=== PATIENT | male | born 1945 | race Caucasian/White ===

== ENCOUNTER 2018-01-03 03:28 | Emergency (ER) | payer OTHER, BC ==
--- NOTE | 2018-01-03 03:49 | PDOC ---
History of Present Illness - General History Source: Patient - History of Present Illness Initial Comments: 01/03/18 03:45 72 y.o. male with a PMH of Glioblastoma Multiforme, HTN, Vitamin D deficiency, Anxiety and Dsyphagia presents to our facility this morning from [facility] after self-extricating his tracheostomy while moving in bed. As per [facility], patient has a size 6 tube and was in his usual state of health prior to presentation. At presentation patient SpO2 98% on NRB. <Marta Easley - Last Filed: 01/03/18 06:04> <Luann Arvizu - Last Filed: 01/03/18 21:15> - General Stated Complaint: TRACH PROBLEM Time Seen by Provider: 01/03/18 03:45 Past History <Marta Easley - Last Filed: 01/03/18 06:04> <Luann Arvizu - Last Filed: 01/03/18 21:15> - Past Medical History Allergies/Adverse Reactions: Allergies Allergy/AdvReac Type Severity Reaction Status Date / Time No Known Allergies Allergy Verified 01/03/18 03:49 Home Medications: Ambulatory Orders Acetaminophen [Tylenol -] 650 mg GT Q6H PRN 01/03/18 Albuterol Sulfate Inhaler - [Ventolin Hfa Inhaler -] 2 inh PO Q4H 01/03/18 Amlodipine Besylate [Norvasc -] 10 mg GT HS 01/03/18 Cholecalciferol (Vitamin D3) [Vitamin D3 -] 1,000 unit GT DAILY 01/03/18 Collagenase Clostridium Hist. [Santyl -] 1 applic TP BID 01/03/18 Dexamethasone 2 mg GT BID 01/03/18 Docusate Liquid [Colace Liquid -] 50 mg GT HS 01/03/18 Doxazosin Mesylate [Cardura -] 2 mg GT DAILY 01/03/18 Haloperidol 0.5 mg GT DAILY 01/03/18 Haloperidol 0.5 mg GT HS 01/03/18 Heparin - 5,000 unit SQ Q12H 01/03/18 Hypromellose 0.5% Opth Soln [Artificial Tears] 1 - 2 drop OU QID 01/03/18 Lactobacillus Acidophilus [Acidophilus] 1 each GT DAILY 01/03/18 Lactulose 20 gm GT DAILY 01/03/18 Levetiracetam 1,000 mg GT BID 01/03/18 Lorazepam [Lorazepam Intensol] 1 mg GT Q6H PRN 01/03/18 Ranitidine HCl 150 mg GT BID 01/03/18 Vit C/Ascorbate Calcium,Sodium [Vitamin C 500 mg/15 ml Liquid] 500 mg GT DAILY 01/03/18 Vitamin A & D Top Oint - [Vitamin A & D] 1 applic TP BID 01/03/18 Vitamin B Complex 1 each GT DAILY 01/03/18 Review of Systems - Review of Systems Able to Perform ROS?: No <Marta Easley - Last Filed: 01/03/18 06:04> *Physical Exam - Physical Exam General Appearance: Yes: Thin Neck: positive: Other (patent tracheostomy site, no erythema, no warmth) Respiratory/Chest: negative: Accessory Muscle Use, Labored Respiration Cardiovascular: positive: S1, S2. negative: Edema, JVD, Murmur Vascular Pulses: Dorsalis-Pedis (R): 2+, Doralis-Pedis (L): 2+ Neurologic: positive: Alert, Responsive <Marta Easley - Last Filed: 01/03/18 06:04> - Vital Signs Last Vital Signs Temp Pulse Resp BP Pulse Ox 98.7 F 104 H 20 130/81 99 01/03/18 03:38 01/03/18 03:38 01/03/18 03:38 01/03/18 03:38 01/03/18 03:38 <Luann Arvizu - Last Filed: 01/03/18 21:15> Medical Decision Making - Medical Decision Making 01/03/18 03:50 72 y.o. male presents after self-extricating tracheostomy tube. Size 6 tube Patient is non-verbal at baseline however communicates with shaking his head "yes" and "no." Size 7 tracheostomy tube placed. Respiratory @ bedside. Patient to be discharged to [facility]. 01/03/18 04:35 Spoke with patient's @ bedside. Patient diagnosed with GBM in April 2017 - s/p trach following respiratory failure. 01/03/18 04:38 Case d/w Sameera (Shelly Betancourt RN) counseled that patient likely needs size 7 tube. Patient transferred to [facility]. <Marta Easley - Last Filed: 01/03/18 06:04> *DC/Admit/Observation/Transfer - Discharge Dispostion Admit: No <Marta Easley - Last Filed: 01/03/18 06:04> <Luann Arvizu - Last Filed: 01/03/18 21:15> Diagnosis at time of Disposition: Tracheostomy care - Discharge Dispostion Disposition: HOME Condition at time of disposition: Good - Referrals Referrals: Paco Ferreira MD [Primary Care Provider] - - Patient Instructions Additional Instructions: Your tracheostomy tube was replaced with a size 7. Eh has been informed of this size change. Please return to the Emergency Department for any new/ worsening/concerning symptoms. - Post Discharge Activity Attending Attestation - Resident Resident Name: Marta Easley - ED Attending Attestation I have performed the following: I have examined & evaluated the patient, The case was reviewed & discussed with the resident, I agree w/resident's findings & plan - HPI HPI: 01/03/18 21:10 Pt came with trach tube accidentally pulled out at home. Comes with EMS, he is in hno distress. Tacheostomy tract is well corticated. - Physicial Exam PE: 01/03/18 21:10 Agree with resident exam. Pt afebrile. He is unable to speak. He is nodding to questions. Unclear how oriented he is, as he nods yes to everyting. However pt is not in distress. Trach collar was replaced easlity by ourselves, as resp therapy called for pulmonary toilet. - Medical Decision Making 01/03/18 21:14 Pt stable for discharge home. <Luann rAvizu - Last Filed: 01/03/18 21:15> Addendum entered and electronically signed by Marta Easley, 01/03/18 06:08: Progress Note - Progress Note Progress Note: Eh called - requested Yazmin brownlee. Order placed.
[2018-01-03 03:50] VITALS: BP 130/81; PULSE 104; TEMP 98.7; BMI 14.8
== END 2018-01-03 05:54 ==
LOC: JER 03:28
DX: J95.09 Other tracheostomy complication (principal); I10 Essential (primary) hypertension; F41.9 Anxiety disorder, unspecified; R13.10 Dysphagia, unspecified; C71.9 Malignant neoplasm of brain, unspecified
CPT/HCPCS: 99282-25